=== PATIENT | male | born 1975 | race Caucasian/White ===

== ENCOUNTER 2017-04-02 11:39 | Emergency (ER) | payer OTHER ==
[~2017-04-02 11:39] MED LIST: ALBUTEROL17 GM INH; GLUCOTROL PO; HYDROMET SYRUP480 ML PO; LISINOPRIL PO; METFORMIN PO; PRINIVIL5 MG PO; ZITHROMAX PO
[2017-04-02] MEDS ORDERED: BP PILL (11:46)
== END 2017-04-02 12:11 | disposition home or self-care (01) ==
LOC: SED 11:39
DX: L03.116 Cellulitis of left lower limb (principal); I10 Essential (primary) hypertension; E11.9 Type 2 diabetes mellitus without complications; Z79.84 Long term (current) use of oral hypoglycemic drugs
CPT/HCPCS: 99282

== ENCOUNTER 2017-04-06 17:30 | Emergency (ER) | payer OTHER ==
[~2017-04-06 17:30] MED LIST changes: +BP PILL
[2017-04-06] MEDS ORDERED: BACTRIM PO (17:33)
[2017-04-06] MEDS ORDERED: KEFLEX PO (17:33)
[2017-04-06 18:29] LABS: BASOPHIL# 0.1 X10e3 (0-0.3); BASOPHIL% 0.7 % (0-2.5); EOSINOPHIL# 0.1 X10e3 (0-0.7); EOSINOPHIL% 1.6 % (0.0-7.0); HEMATOCRIT 44.8 % (38.0-50.0); HEMOGLOBIN 15.6 gm/dL (13.0-16.0); LYMPHOCYTE# 2.9 X10e3 (1.0-3.5); LYMPHOCYTE% 34.4 % (17.0-45.0); MEAN CELL VOLUME 85.4 FL (83-96); MEAN CORPUSCULAR HEMOGLOBIN 29.7 PG (28-34); MEAN CORPUSCULAR HGB CONC 34.8 g/dL (30-36); MEAN PLATELET VOLUME 8.5 FL (6.5-11.5); MONOCYTE# 0.7 X10e3 (0-1.0); MONOCYTE% 8.9 % (3.0-12.0); NEUTROPHIL# 4.5 X10e3 (1.5-7.1); NEUTROPHIL% 54.4 % (40-75); PLATELET COUNT 176 X10e3 (140-420); RED BLOOD COUNT 5.24 X10e (3.90-5.60); RED CELL DISTRIBUTION WIDTH 13.2 % (11.0-15.5); WHITE BLOOD COUNT 8.4 X10e3 (4.0-10.5)
[2017-04-06 18:32] LABS: DIFF IND NO
[2017-04-06 18:47] LABS: ALBUMIN SERUM 3.8 g/dL (3.5-5.0); BILIRUBIN,TOTAL 0.9 mg/dL (0.2-2.0); CALCIUM SERUM 8.4 mg/dL (8.4-10.2); GLOM FILT RATE Estimated 94.4 mL/min (>60); POTASSIUM 3.8 mmol/L (3.5-5.1); PROTEIN TOTAL SERUM 7.2 g/dL (6.0-8.3)
== END 2017-04-06 19:18 | disposition home or self-care (01) ==
LOC: SED 17:30
PROVIDERS: Nurse Practitioner
DX: L03.116 Cellulitis of left lower limb (principal); S80.12XA Contusion of left lower leg, initial encounter; I10 Essential (primary) hypertension; E11.9 Type 2 diabetes mellitus without complications; Z79.2 Long term (current) use of antibiotics; Z79.899 Other long term (current) drug therapy
CPT/HCPCS: 10060; 36415; 80053; 85025; 87070; 87205; 96361; 96374; 99283; J1885

== ENCOUNTER → 2017-04-12 | Outpatient (CLI) | payer OTHER ==
[~2017-04-12] MED LIST changes: +BACTRIM PO; +JANUMET 50-1,01 EACH; +KEFLEX PO; +ZITHROMAX
--- NOTE | ~2017-04-12 | US85 ---
[facility] A Service of [facility] & [facility] RADIOLOGY TEXT RESULTS PATIENT: CAMILLA ARANDA LOCATION: [facility] : 79 UNIT #: [id number] AGE: [address]: Denise Phipps APRN SEX: M ORDER DR: [id number] [facility] [address]. [place], [place] [address] [id number] O MR#: [id number] Acc #: [id number] NAME: CAMILLA ARANDA : 1975 SEX: M STUDY DATE/TIME: 04/12/2017 14:51 UNIT: [facility] ROOM: STUDY DESCRIPTION: [facility] Unil[facility] or [facility] Stdy Attending Physician: Denise Phipps Referring Physician: Denise Phipps Ordering Physician: Thanh Phipps Aprn Primary Care Physician: Denise Phipps MEDICAL IMAGING REPORT This report is preliminary unless electronic signature is present EXAM Left lower extremity venous Doppler HISTORY Pain and swelling for 10 days radiating up the leg. History of diabetes. Recent drainage. FINDINGS color-flow, alcocer-scale, Doppler spectral waveform analysis was performed of the deep and superficial veins of the left lower extremity veins are compressible throughout with normal phasicity of flow. No intraluminal filling defects are seen. CONCLUSION Negative left lower extremity venous Doppler Dictated by... Deon Regalado M.D. THIS IS AN ELECTRONICALLY VERIFIED REPORT Deon Regalado M.D. at 04/15/2017 5:12 PM John TD: 04/12/2017 19:52 JOB #: [id number] MEDICAL IMAGING REPORT Page 1 of 1 COPY
== END | disposition home or self-care (01) ==
LOC: CGUS 14:28
DX: M79.662 Pain in left lower leg (principal)
CPT/HCPCS: 93971

== ENCOUNTER 2017-06-28 09:07 | Emergency (ER) | payer OTHER ==
[~2017-06-28 09:07] MED LIST changes: -JANUMET 50-1,01 EACH; -ZITHROMAX
[2017-06-28] MEDS ORDERED: JANUMET 50-1,01 EACH (09:18)
[2017-06-28] MEDS ORDERED: ZITHROMAX (10:04)
== END 2017-06-28 10:04 | disposition home or self-care (01) ==
LOC: SED 09:07
DX: J02.9 Acute pharyngitis, unspecified (principal); Z79.899 Other long term (current) drug therapy
CPT/HCPCS: 87651; 99283